=== PATIENT | male | born 1975 | race Caucasian/White ===

== ENCOUNTER 2017-04-26 11:35 | Emergency (ER) | payer OTHER ==
--- NOTE | 2017-04-26 12:51 | CPEKG ---
Heart Rate: 64 RR Interval: 938 P-R Interval: 120 QRSD Interval: 92 QT Interval: 388 QTC Interval: 401 P [place]: 51 QRS [place]: 47 T Wave [place]: 30 EKG Severity - NORMAL ECG - EKG Impression: SINUS RHYTHM Electronically Signed By: Irma Painting 26-Apr-2017 18:39:43
[2017-04-26 13:44] LABS: APTT 32.2 SEC (23.0-38.0); INR 1.11 (0.83-1.16); PROTIME(PATIENT) 14.2 SEC (12.0-15.0)
[2017-04-26 13:56] LABS: CREATINE KINASE-MB FRACTION 1.21 ng/mL (0.00-3.19); TROPONIN I < 0.012 ng/mL (0.000-0.034)
--- NOTE | 2017-04-26 13:59 | EDPHY ---
H & P Stated Complaint: Heart feels like its pulsing x1wk,1 episode sharp CP today( gone now) HPI/ROS: CHIEF COMPLAINT: HISTORY OF PRESENT ILLNESS: REVIEW OF SYSTEMS: A ten point review of systems was performed and is negative with the exception of the items mentioned in the HPI. Past medical history: Past surgical history: Family history: Social history: General Appearance: Alert. Vital signs reviewed. * Eyes: Pupils equal and round, no conjunctival injection, no discharge. Anicteric. ENT, Mouth: Mucous membranes are moist, no oropharyngeal erythema or edema. Neck: No lymphadenopathy, supple. Respiratory: Lungs are clear to auscultation; no wheezes, rales, or rhonchi. Cardiovascular: Regular rate and rhythm; no murmur, rub, or gallop. Gastrointestinal: Abdomen is soft and nontender, no masses or organomegaly, bowel sounds normal. Skin: Warm and dry, no rashes on exposed skin, normal color. Back: Nontender to palpation over the thoracolumbar spine. No CVAT. Extremities: No lower extremity edema, no calf tenderness or swelling. Neurological: Alert and oriented. Moving all four extremities easily and equally. Cranial nerves II through XII are examined and are intact (visual acuity not tested). Strength is 5 over 5 bilaterally with testing of all major motor groups. Sensation is intact to light touch over all 4 extremities. Deep tendon reflexes are 2+ in the biceps and knees bilaterally. Gait is normal. [id number] is performed accurately. Psychiatric: Normal affect. - Personal History Current Tetanus Diphtheria and Acellular Pertussis (TDAP): Yes - Medical/Surgical History Other PMH: healthy - Social History Smoking Status: Never smoked Constitutional: Initial Vital Signs Temperature (C) 36.8 C 04/26/17 11:35 Heart Rate 73 04/26/17 11:35 Respiratory Rate 18 04/26/17 11:35 Blood Pressure 136/90 H 04/26/17 11:35 O2 Sat (%) 94 04/26/17 11:35 O2 Delivery Mode Room Air Allergies/Adverse Reactions: No Known Allergies Allergy (Verified 04/26/17 11:36) Home Medications: Medication Instructions Recorded NK [No Known Home Meds] 04/26/17 Medical Decision Making - Data Points Laboratory Results: 04/26/17 04/26/17 12:45 12:45 PT 14.2 SEC SEC (12.0-15.0) INR 1.11 (0.83-1.16) APTT 32.2 SEC SEC (23.0-38.0) Creatine Kinase 88 IU/L IU/L (0-224) CK-MB (CK-2) Fraction Pending Troponin I Pending Departure - Departure Referrals: NONE *PRIMARY CARE P,. [Primary Care Provider] - As per Instructions Physician Review and Approval Statement: 04/26/17 13:49 Portions of this note were transcribed by the medical billing and coding specialist. I, Dr. Irma Painting, personally performed the history, physical exam, and medical decision- making; and confirmed the accuracy of the information in the transcribed note.
[2017-04-26] MEDS ORDERED: ASPIRIN 81 MG CHEWABLE TAB PO ONE (14:00)
--- NOTE | 2017-04-26 14:00 | EDPHY ---
H & P Stated Complaint: Heart feels like its pulsing x1wk,1 episode sharp CP today( gone now) Time Seen by Provider: 04/26/17 13:49 HPI/ROS: CHIEF COMPLAINT: Chest pain HISTORY OF PRESENT ILLNESS: The patient is a 41 y/o male arriving with his complaining of persistent episodic mild left-sided chest pain for the last 5 days. He describes his pain as a "dull presence of being poked at" and he rates it at a 1/10 in severity. Each episode lasts about 10 seconds. While in a meeting today around 11:30, about 2.5 hours ago, his pain spiked to a 3/10 in severity and lasted for about 1 minute, prompting him to come to the ED. His pain is non-radiating. The pain is recurring every 5 minutes and has dropped down to 1/10 in severity. He denies associated dyspnea, nausea, diaphoresis. He notes over the weekend while setting up his camper at 10,000ft he felt like he was going to pass out. He's also experienced the sensation of a rapid heart rate. He denies recent illness or trauma. Possible hypercholesterolemia, but does not take medications. He denies history of hypertension, diabetes, cardiac disease. REVIEW OF SYSTEMS: A 10 point review of systems was performed and is negative with the exception of the elements mentioned in the history of present illness. Past medical history: Denies Past surgical history: Denies Family history: Paternal grandmother of cardiac issue age 60. No known cardiac history at a young age in his immediate family members. Social history: Nonsmoker. at bedside. No PCP. Works in sales. General Appearance: Alert, no acute distress. BP 136/90 Eyes: Pupils equal and round, no conjunctival injection, no discharge. ENT, Mouth: Mucous membranes are moist, no oropharyngeal erythema or edema. Neck: No lymphadenopathy, supple. Respiratory: Lungs are clear to auscultation; no wheezes, rales, or rhonchi. Cardiovascular: Regular rate and rhythm; no murmur, rub, or gallop. Gastrointestinal: Abdomen is soft and non tender, no masses or organomegaly, bowel sounds normal. Skin: Warm and dry, no rashes, normal color. Back: Nontender to palpation over the thoracolumbar spine. Extremities: No lower extremity edema, no calf tenderness or swelling. Neurological: Alert and oriented. Moving all four extremities easily and equally. Psychiatric: Normal affect. - Personal History Current Tetanus Diphtheria and Acellular Pertussis (TDAP): Yes - Medical/Surgical History Other PMH: healthy - Social History Smoking Status: Never smoked Constitutional: Initial Vital Signs Temperature (C) 36.8 C 04/26/17 11:35 Heart Rate 73 04/26/17 11:35 Respiratory Rate 18 04/26/17 11:35 Blood Pressure 136/90 H 04/26/17 11:35 O2 Sat (%) 94 04/26/17 11:35 O2 Delivery Mode Room Air Allergies/Adverse Reactions: No Known Allergies Allergy (Verified 04/26/17 11:36) Home Medications: Medication Instructions Recorded NK [No Known Home Meds] 04/26/17 Medical Decision Making - Diagnostics EKG Interpretation: EKG interpreted by ED physician in [facility]. Sinus rhythm, no ischemic changes. Imaging: I viewed and interpreted images myself ED Course/Re-evaluation: IV established. Labs drawn. Patient placed on radiology assistant. Chest x-ray ordered. 324mg PO aspirin administered. The 12 lead EKG was interpreted by myself. Sinus mechanism. See hard copy and/ or "[facility]" electronic copy for interpretation. Reassessed patient and discussed findings. Chest x-ray negative (no pneumonia, rib fracture, pneumothorax). Labs unremarkable. Nothing to suggest infection in the history or work-up. No tenderness to palpation over thorax, although pain could still be musculoskeletal. Doubt PE with this history and physical exam. HEART score is 0. Pain is atypical. I do not recommend serial troponins, observation. I've recommended follow up with a PCP and talent specialist this week. Return precautions given. He is comfortable with this plan. - Data Points Laboratory Results: Laboratory Results 04/26/17 12:40 04/26/17 12:45 Medications Given: Discontinued Medications Aspirin (Aspirin) 324 mg PO EDNOW ONE Stop: 04/26/17 14:01 Last Admin: 04/26/17 14:30 Dose: 324 mg Departure - Departure Disposition: Home, Routine, Self-Care Clinical Impression: Chest pain Qualifiers: Chest pain type: other chest pain Qualified Code(s): R07.89 - Other chest pain ; R07.8 - Other chest pain Condition: Good Instructions: Chest Pain (ED) Additional Instructions: 1. Follow up with Dr. Camacho, talent specialist, this week. 2. Follow up with Dr. Meyer, primary care provider, this week to establish care. 3. Take 400mg ibuprofen every 6-8 hours for pain over the next few days. I also recommend taking an [id number] acid-magali while using ibuprofen. 4. Return to the ED for worsening of condition. Referrals: Mary Meyer MD [Medical Doctor] - As per Instructions Shannon Camacho MD [Medical Doctor] - As per Instructions Report Scribed for: Irma Painting Report Scribed by: Yaquelin Vela Date of Report: 04/26/17 Time of Report: 14:01 Physician Review and Approval Statement: 04/29/17 14:12 Portions of this chart were entered by a medical assistant per diem. I personally performed the HPI, PE, MDM. I have reviewed the chart and agree with the documentation.
[2017-04-26 14:10] LABS: % IMMATURE GRANULYOCYTES 0.2 % (0.0-1.1); ABSOLUTE IMMATURE GRANULOCYTES 0.01 10^3/uL (0.00-0.10); ADD DIFF? NO; ADD MORPH? NO; ADD SCAN? NO; ATYPICAL LYMPHOCYTE FLAG 20 (0-99); FRAGMENT RBC FLAG 0 (0-99); HEMATOCRIT 44.4 % (40.0-51.0); HEMOGLOBIN 15.6 g/dL (13.7-17.5); LEFT SHIFT FLG 0 (0-99); LIPEMIA HEMOLYSIS FLAG 90 (0-99); MEAN CELL HEMOGLOBIN 31.2 pg (27.9-34.1); MEAN CELL HEMOGLOBIN CONCENTR. 35.1 g/dL (32.4-36.7); MEAN CELL VOLUME 88.8 fL (81.5-99.8); MEAN PLATELET VOLUME 9.3 fL (8.7-11.7); PLATELET CLUMPS FLAG 0 (0-99); PLATELET COUNT 214 10^3/uL (150-400); RED CELL DISTRIBUTION WIDTH 11.6 % (11.5-15.2)
[2017-04-26 14:39] LABS: ANION GAP 13 mEq/L (8-16); CARBON DIOXIDE 24 mEq/l (22-31); CHLORIDE 102 mEq/L (97-110); GLOMERULAR FILTRATION RATE > 60; GLUCOSE 83 mg/dL (70-100); POTASSIUM 4.3 mEq/L (3.5-5.2); SODIUM 139 mEq/L (134-144)
[2017-04-26 15:43] VITALS: BP 127/92; PULSE 75; RESP 16; TEMP 96.8
[2017-04-26 15:44] VITALS: O2SAT 98
== END 2017-04-26 15:44 | disposition home or self-care (01) ==
DX: R07.89 Other chest pain (principal)